=== PATIENT | male | born 1995 | race Caucasian/White ===

== ENCOUNTER 2018-02-27 17:13 | Emergency (ER) | payer BC ==
--- NOTE | 2018-02-27 17:40 | ER Document Report ---
HPI - HPI Pain Level: 3 Notes: Patient is a 23-year-old male no significant past medical history who presents to the ED complaining of right dorsal foot pain distally times 1 week status post injury. Patient believes that he may have twisted wrong. Patient has not noticed any obvious swelling or bruising to the area, but has been limping since then. Denies any drug allergies. No other concerns or complaints. Pain does not radiate. Denies any headache, fever, URI, sore throat, chest pain, palpitations, syncope, cough, shortness of breath, wheeze, dyspnea, abdominal pain, nausea/vomiting/diarrhea, urinary retention, dysuria, hematuria, numbness/ tingling, muscle paralysis/weakness, or rash. - ROS Systems Reviewed and Negative: Yes All other systems reviewed and negative Past Medical History - Social History Smoking Status: Never Smoker Family History: Reviewed & Not Pertinent Vertical Provider Document - CONSTITUTIONAL Agree With Documented VS: Yes Notes: PHYSICAL EXAMINATION: GENERAL: Well-appearing, well-nourished and in no acute distress. LUNGS: Breath sounds clear to auscultation bilaterally and equal. No wheezes rales or rhonchi. HEART: Regular rate and rhythm without murmurs, rubs, gallops. Musculoskeletal: Rt foot/ankle: No obvious deformity, ecchymosis, erythema, warmth. + Tenderness to the second and third metatarsals distally. FROM to passive/active. Strength 5+/5. N/V intact distal. No bony tenderness of the ankle. Achilles intact. Extremities: No cyanosis, clubbing, or edema b/l. Peripheral pulses 2+. Capillary refill less than 3 seconds. NEUROLOGICAL: Normal speech, limping gait. Normal sensory, motor exams PSYCH: Normal mood, normal affect. SKIN: Warm, Dry, normal turgor, no rashes or lesions noted. - INFECTION CONTROL TRAVEL OUTSIDE OF THE [place] IN LAST 30 DAYS: No Course - Re-evaluation Re-evalutation: 02/27/18 18:12 Patient is an afebrile, well-hydrated, 23-year-old male who presents to the ED with Rt foot pain which I suspect to be a sprain versus strain. Vitals are acceptable without any significant tachycardia, tachypnea, or hypoxia. PE is otherwise unremarkable for any neurovascular compromise, obvious tendon/ ligament rupture, obvious fracture/dislocation, septic joint. X-ray was unremarkable for any acute pathology. Patient declined any Tylenol or ice. Patient is nontoxic-appearing. Patient is able to ambulate and weight-bear although he is limping. No other labs or imaging warranted at this time based on H&P. Pt request a post-op shoe. Conservative measures otherwise for symptoms. Recheck with your PCM in 3-5 days. Consider consult orthopedics. Return to the ED with any worsening/concerning symptoms otherwise as reviewed in discharge. Patient is in agreement. - Vital Signs Vital signs: Temp Pulse Resp BP Pulse Ox 98.1 F 85 18 142/97 H 97 02/27/18 17:31 02/27/18 17:31 02/27/18 17:31 02/27/18 17:31 02/27/18 17:31 Discharge - Discharge Clinical Impression: Right foot pain Condition: Stable Disposition: HOME, SELF-CARE Additional Instructions: Rest, Ice, Compression, Elevation Tylenol/ibuprofen as needed Light stretches daily Strength exercises as able Moist heat and massage may help F/u with your PCP in 3-5 days for a recheck Consider consult(s) with Orthopedics/physical therapy for ongoing/worsening symptoms Return to the ED with any worsening symptoms and/or development of fever, headache, chest pain, palpitations, syncope, shortness of breath, trouble breathing, abdominal pain, n/v/d, muscle weakness/paralysis, numbness/tingling, swelling, redness, or other worsening symptoms that are concerning to you. Forms: Elevated Blood Pressure Referrals: [facility] [ACTIVE STAFF] - Follow up as needed
--- NOTE | 2018-02-27 18:06 | RADIOLOGY REPORT (SQ) ---
EXAM DESCRIPTION: FOOT RIGHT COMPLETE COMPLETED DATE/TIME: 02/27/2018 5:56 pm REASON FOR STUDY: pain 2nd-3rd metatarsal s/p injury COMPARISON: None. NUMBER OF VIEWS: Three views. TECHNIQUE: AP, lateral and oblique radiographic images acquired of the right foot. LIMITATIONS: None. FINDINGS: MINERALIZATION: Normal. BONES: No acute fracture or dislocation. No worrisome bone lesions. JOINTS: No effusions. SOFT TISSUES: No soft tissue swelling. No foreign body. OTHER: No other significant finding. IMPRESSION: NEGATIVE STUDY OF THE RIGHT FOOT. NO RADIOGRAPHIC EVIDENCE OF ACUTE INJURY. TECHNICAL DOCUMENTATION: JOB ID: [id number] [employer]- All Rights Reserved Reading location - IP/workstation name: [email or web address]
[2018-02-27 18:26] VITALS: BP 126/88
== END 2018-02-27 18:31 | disposition home or self-care (01) ==
LOC: ER 17:13
DX: M79.671 Pain in right foot (principal)
CPT/HCPCS: 99283